=== PATIENT | female | born 1960 | race Caucasian/White ===

== ENCOUNTER 2018-07-10 21:32 | Inpatient (IN) | payer OTHER ==
[2018-07-10 23:13] LABS: ADD UMIC YES; UR ASCORBIC ACID 20 mg/dL (NEGATIVE); UR BACTERIA FEW /HPF (NONE SEEN); UR BILIRUBIN (Dip) NEGATIVE (NEGATIVE); UR BLOOD (Dip) NEGATIVE (NEGATIVE); UR CLARITY CLOUDY (CLEAR); UR COLOR YELLOW (YELLOW); UR GLUCOSE (Dip) NEGATIVE (NEGATIVE); UR KETONES (Dip) NEGATIVE (NEGATIVE); UR LEUKOCYTE ESTERASE (Dip) TRACE Leu/ul (NEGATIVE); UR MUCUS MODERATE /HPF (NONE SEEN); UR NITRITE (Dip) NEGATIVE (NEGATIVE); UR RBC 5 /HPF (0-5); UR SPECIFIC GRAVITY (Dip) 1.019 (1.003-1.030); UR SQUAMOUS EPITHELIAL CELL MANY /HPF (FEW); UR TOTAL PROTEIN (Dip) NEGATIVE (NEGATIVE); UR UROBILINOGEN (Dip) 1+ mg/dL (NEGATIVE); UR WBC 7 /HPF (0-5)
[2018-07-11] MEDS ORDERED: ACETAMINOPHEN 325 MG TAB PO (05:00)
[2018-07-11] MEDS ORDERED: MAGNESIUM HYDROXIDE 30ML CUP PO (05:00)
[2018-07-11] MEDS ORDERED: BISACODYL 10 MG SUPP PR (05:00)
[2018-07-11] MEDS ORDERED: LACTULOSE 30ML CUP PO (05:00)
[2018-07-11 07:18] LABS: ADD MAN DIFF? NO
[2018-07-11 07:20] LABS: WHITE BLOOD COUNT 7.4 10^3/ul (4.8-10.8)
[2018-07-11 07:20] LABS: BASOPHILS % 0.3 % (0.0-2.0); EOSINOPHILS % 13.3 % (0.0-7.0); HEMATOCRIT 43.4 % (37.0-47.0); HEMOGLOBIN 13.8 g/dl (12.0-16.0); LYMPHOCYTES # 1.4 10^3/ul (0.8-2.9); LYMPHOCYTES % 18.6 % (15.0-51.0); MEAN CORPUSCULAR HEMOGLOBIN 27.3 pg (29.0-33.0); MEAN CORPUSCULAR HGB CONC 31.8 g/dl (32.0-37.0); MEAN CORPUSCULAR VOLUME 85.8 fl (82.0-101.0); MEAN PLATELET VOLUME 11.7 fl (7.4-10.4); MONOCYTE # 0.5 10^3/ul (0.3-0.9); MONOCYTES % 7.3 % (0.0-11.0); NEUTROPHIL # 4.4 10^3/ul (1.6-7.5); NEUTROPHILS % 60.2 % (39.0-77.0); PLATELET COUNT 224 10^3/UL (140-415); RED BLOOD COUNT 5.06 10^6/ul (4.20-5.40); RED CELL DISTRIBUTION WIDTH 14.9 % (11.5-14.5)
[2018-07-11 07:44] LABS: INR 1.88; PROTIME 21.7 Sec (11.9-14.9); PT RATIO 1.7
[2018-07-11 07:47] LABS: ALANINE AMINOTRANSFERASE 50 IU/L (13-69); ALBUMIN 3.5 g/dl (3.3-4.9); ALBUMIN/GLOBULIN RATIO 1.29; ALKALINE PHOSPHATASE 86 IU/L (42-121); ANION GAP 6 (5-13); ASPARTATE AMINO TRANSFERASE 38 IU/L (15-46); BILIRUBIN,INDIRECT 0.4 mg/dl (0-1.1); BILIRUBIN,TOTAL 0.4 mg/dl (0.2-1.3); BLOOD UREA NITROGEN 19 mg/dl (7-20); CALCIUM 9.1 mg/dl (8.4-10.2); CARBON DIOXIDE 27 mmol/L (21-31); CHLORIDE 109 mmol/L (97-110); CREATININE 0.52 mg/dl (0.44-1.00); Estimated GFR > 60 mL/min (>60); GLUCOSE 92 mg/dl (70-220); POTASSIUM 3.8 mmol/L (3.5-5.1); SODIUM 142 mmol/L (135-144); TOTAL PROTEIN 6.2 g/dl (6.1-8.1)
[2018-07-11] MEDS: DOCUSATE SODIUM 100 MG CAP PO ×2 (10:09→21:18)
[2018-07-11] MEDS: ASPIRIN 81 MG TAB PO (10:09)
[2018-07-11] MEDS: LISINOPRIL 5 MG TAB PO (10:17)
[2018-07-11] MEDS: CIPROFLOXACIN 500 MG TAB PO ×3 (15:22→21:18)
[2018-07-11] MEDS: WARFARIN 2 MG TAB PO (18:34)
[2018-07-11] MEDS: SENNA TAB PO (21:18)
[2018-07-11] MEDS: ATORVASTATIN 40 MG TAB PO (21:18)
[2018-07-12] MEDS: CIPROFLOXACIN 500 MG TAB PO ×2 (06:25→18:36)
[2018-07-12 06:59] LABS: INR 2.16; PROTIME 24.2 Sec (11.9-14.9); PT RATIO 1.9
[2018-07-12] MEDS: LISINOPRIL 5 MG TAB PO (09:00)
[2018-07-12] MEDS: DOCUSATE SODIUM 100 MG CAP PO ×2 (10:51→21:07)
[2018-07-12] MEDS: ASPIRIN 81 MG TAB PO (10:51)
[2018-07-12] MEDS: WARFARIN 2 MG TAB PO (18:02)
[2018-07-12] MEDS: ATORVASTATIN 40 MG TAB PO (21:07)
[2018-07-12] MEDS: SENNA TAB PO (21:07)
[2018-07-13] MEDS: CIPROFLOXACIN 500 MG TAB PO ×2 (05:46→18:16)
[2018-07-13] MEDS: ASPIRIN 81 MG TAB PO (09:33)
[2018-07-13] MEDS: LISINOPRIL 5 MG TAB PO (09:34)
[2018-07-13] MEDS: DOCUSATE SODIUM 100 MG CAP PO ×2 (09:34→20:25)
[2018-07-13] MEDS: WARFARIN 2 MG TAB PO (18:20)
[2018-07-13] MEDS: SENNA TAB PO (20:25)
[2018-07-13] MEDS: ATORVASTATIN 40 MG TAB PO (20:25)
[2018-07-14] MEDS: CIPROFLOXACIN 500 MG TAB PO ×2 (05:49→17:04)
[2018-07-14 07:48] LABS: INR 2.05; PROTIME 23.2 Sec (11.9-14.9); PT RATIO 1.8
[2018-07-14] MEDS: DOCUSATE SODIUM 100 MG CAP PO ×2 (07:52→21:01)
[2018-07-14] MEDS: ASPIRIN 81 MG TAB PO (07:52)
[2018-07-14] MEDS: LISINOPRIL 5 MG TAB PO (08:47)
[2018-07-14] MEDS: WARFARIN 2 MG TAB PO (17:04)
[2018-07-14] MEDS: SENNA TAB PO (21:01)
[2018-07-14] MEDS: ATORVASTATIN 40 MG TAB PO (21:05)
[2018-07-15] MEDS: CIPROFLOXACIN 500 MG TAB PO ×2 (06:08→18:30)
[2018-07-15 07:53] LABS: INR 2.36; PROTIME 25.9 Sec (11.9-14.9)
[2018-07-15] MEDS: DOCUSATE SODIUM 100 MG CAP PO ×2 (09:23→21:00)
[2018-07-15] MEDS: ASPIRIN 81 MG TAB PO (09:23)
[2018-07-15] MEDS: LISINOPRIL 5 MG TAB PO (09:29)
[2018-07-15] MEDS: WARFARIN 2 MG TAB PO (18:29)
[2018-07-15] MEDS: SENNA TAB PO (21:00)
[2018-07-15] MEDS: ATORVASTATIN 40 MG TAB PO (21:00)
[2018-07-16] MEDS: CIPROFLOXACIN 500 MG TAB PO ×2 (06:15→18:22)
[2018-07-16 07:08] LABS: INR 2.07; PROTIME 23.4 Sec (11.9-14.9); PT RATIO 1.8
[2018-07-16] MEDS: LISINOPRIL 5 MG TAB PO (09:00)
[2018-07-16] MEDS: DOCUSATE SODIUM 100 MG CAP PO ×2 (10:17→20:49)
[2018-07-16] MEDS: ASPIRIN 81 MG TAB PO (10:21)
[2018-07-16] MEDS: WARFARIN 2 MG TAB PO (18:22)
[2018-07-16] MEDS: SENNA TAB PO (20:49)
[2018-07-16] MEDS: ATORVASTATIN 40 MG TAB PO (20:49)
[2018-07-17] MEDS: CIPROFLOXACIN 500 MG TAB PO ×2 (05:53→18:24)
[2018-07-17 07:27] LABS: ADD MAN DIFF? NO
[2018-07-17 07:42] LABS: BASOPHILS % 0.5 % (0.0-2.0); EOSINOPHILS # 0.3 10^3/ul (0.0-0.5); EOSINOPHILS % 4.3 % (0.0-7.0); HEMATOCRIT 38.7 % (37.0-47.0); HEMOGLOBIN 12.2 g/dl (12.0-16.0); LYMPHOCYTES # 0.9 10^3/ul (0.8-2.9); LYMPHOCYTES % 16.2 % (15.0-51.0); MEAN CORPUSCULAR HEMOGLOBIN 27.2 pg (29.0-33.0); MEAN CORPUSCULAR HGB CONC 31.5 g/dl (32.0-37.0); MEAN CORPUSCULAR VOLUME 86.4 fl (82.0-101.0); MEAN PLATELET VOLUME 12.4 fl (7.4-10.4); MONOCYTE # 0.6 10^3/ul (0.3-0.9); MONOCYTES % 10.2 % (0.0-11.0); NEUTROPHILS % 68.6 % (39.0-77.0); PLATELET COUNT 197 10^3/UL (140-415); RED BLOOD COUNT 4.48 10^6/ul (4.20-5.40); RED CELL DISTRIBUTION WIDTH 14.9 % (11.5-14.5)
[2018-07-17 07:42] LABS: WHITE BLOOD COUNT 5.8 10^3/ul (4.8-10.8)
[2018-07-17 07:56] LABS: ANION GAP 10 (5-13); BLOOD UREA NITROGEN 15 mg/dl (7-20); CALCIUM 9.4 mg/dl (8.4-10.2); CARBON DIOXIDE 29 mmol/L (21-31); CHLORIDE 104 mmol/L (97-110); CREATININE 0.54 mg/dl (0.44-1.00); Estimated GFR > 60 mL/min (>60); GLUCOSE 89 mg/dl (70-220); MAGNESIUM 1.9 mg/dl (1.7-2.5); PHOSPHORUS 3.8 mg/dl (2.5-4.9); POTASSIUM 4.4 mmol/L (3.5-5.1); SODIUM 143 mmol/L (135-144)
[2018-07-17 08:02] LABS: INR 1.86; PROTIME 21.5 Sec (11.9-14.9); PT RATIO 1.7
[2018-07-17] MEDS: LISINOPRIL 5 MG TAB PO (09:00)
[2018-07-17] MEDS: DOCUSATE SODIUM 100 MG CAP PO ×2 (10:05→20:37)
[2018-07-17] MEDS: ASPIRIN 81 MG TAB PO (10:06)
[2018-07-17] MEDS: ATORVASTATIN 40 MG TAB PO (20:31)
[2018-07-17] MEDS: WARFARIN 3 MG TAB PO (20:32)
[2018-07-17] MEDS: SENNA TAB PO (20:37)
[2018-07-18] MEDS: CIPROFLOXACIN 500 MG TAB PO (06:46)
[2018-07-18] MEDS: DOCUSATE SODIUM 100 MG CAP PO ×2 (09:00→20:47)
[2018-07-18 09:16] LABS: INR 1.65; PROTIME 19.6 Sec (11.9-14.9); PT RATIO 1.5
[2018-07-18] MEDS: ASPIRIN 81 MG TAB PO (10:15)
[2018-07-18] MEDS: LISINOPRIL 5 MG TAB PO (10:16)
[2018-07-18] MEDS: WARFARIN 3 MG TAB PO (17:40)
[2018-07-18] MEDS: ATORVASTATIN 40 MG TAB PO (20:47)
[2018-07-18] MEDS: SENNA TAB PO (20:47)
[2018-07-19 08:07] LABS: INR 1.95; PROTIME 22.3 Sec (11.9-14.9); PT RATIO 1.7
[2018-07-19] MEDS: LISINOPRIL 5 MG TAB PO (09:32)
[2018-07-19] MEDS: DOCUSATE SODIUM 100 MG CAP PO ×2 (09:32→21:00)
[2018-07-19] MEDS: ASPIRIN 81 MG TAB PO (09:32)
[2018-07-19] MEDS: WARFARIN 3 MG TAB PO (16:52)
[2018-07-19] MEDS: ATORVASTATIN 40 MG TAB PO (20:32)
[2018-07-19] MEDS: SENNA TAB PO (21:00)
[2018-07-20 08:11] LABS: PROTIME 22.8 Sec (11.9-14.9); PT RATIO 1.8
[2018-07-20] MEDS: DOCUSATE SODIUM 100 MG CAP PO ×2 (08:39→21:00)
[2018-07-20] MEDS: ASPIRIN 81 MG TAB PO (08:39)
[2018-07-20] MEDS: LISINOPRIL 5 MG TAB PO (08:39)
[2018-07-20] MEDS: WARFARIN 3 MG TAB PO (17:54)
[2018-07-20] MEDS: SENNA TAB PO (21:00)
[2018-07-20] MEDS: ATORVASTATIN 40 MG TAB PO (21:31)
[2018-07-21 08:26] LABS: INR 1.99; PROTIME 22.7 Sec (11.9-14.9); PT RATIO 1.8
[2018-07-21] MEDS: DOCUSATE SODIUM 100 MG CAP PO ×2 (10:56→21:00)
[2018-07-21] MEDS: ASPIRIN 81 MG TAB PO (10:56)
[2018-07-21] MEDS: LISINOPRIL 5 MG TAB PO (10:57)
[2018-07-21] MEDS: WARFARIN 3 MG TAB PO (18:09)
[2018-07-21] MEDS: ATORVASTATIN 40 MG TAB PO (20:32)
[2018-07-21] MEDS: SENNA TAB PO (21:00)
[2018-07-22] MEDS: DOCUSATE SODIUM 100 MG CAP PO ×2 (09:00→20:33)
[2018-07-22 09:59] LABS: PROTIME 21.9 Sec (11.9-14.9); PT RATIO 1.7
[2018-07-22] MEDS: LISINOPRIL 5 MG TAB PO (09:59)
[2018-07-22] MEDS: ASPIRIN 81 MG TAB PO (10:00)
[2018-07-22] MEDS: WARFARIN 3 MG TAB PO (17:45)
[2018-07-22] MEDS: ATORVASTATIN 40 MG TAB PO (20:30)
[2018-07-22] MEDS: SENNA TAB PO (20:33)
[2018-07-23 07:29] LABS: INR 1.98; PROTIME 22.6 Sec (11.9-14.9); PT RATIO 1.8
[2018-07-23] MEDS: ASPIRIN 81 MG TAB PO (08:19)
[2018-07-23] MEDS: LISINOPRIL 5 MG TAB PO (08:19)
[2018-07-23] MEDS: DOCUSATE SODIUM 100 MG CAP PO (08:19)
[2018-07-23] MEDS ORDERED: WARFARIN 3 MG TAB PO (17:00)
== END 2018-07-23 13:20 | disposition home health service (06) | DRG 56 ==
LOC: VRC 21:32
DX: I69.351 Hemiplegia and hemiparesis following cerebral infarction affecting right dominant side (principal); J96.00 Acute respiratory failure, unspecified whether with hypoxia or hypercapnia; J69.0 Pneumonitis due to inhalation of food and vomit; I50.23 Acute on chronic systolic (congestive) heart failure; N39.0 Urinary tract infection, site not specified; I69.391 Dysphagia following cerebral infarction; Z74.09 Other reduced mobility; R33.9 Retention of urine, unspecified; R73.03 Prediabetes; R13.12 Dysphagia, oropharyngeal phase; Z86.73 Personal history of transient ischemic attack (TIA), and cerebral infarction without residual deficits; R29.810 Facial weakness; I69.322 Dysarthria following cerebral infarction
CPT/HCPCS: 71045; 80048; 80053; 81001; 83735; 84100; 85025; 85610; 87081; 87086; 90686; 92507; 92523; 92526; 92610; 93306; 97110; 97112; 97116; 97150; 97163; 97530; 97535

== ENCOUNTER 2018-10-16 15:26 | Inpatient (IN) | payer OTHER ==
[2018-10-16] MEDS ORDERED: hydrALAzine 20 MG INJ IV (16:30)
[2018-10-16] MEDS ORDERED: ACETAMINOPHEN 325 MG TAB PO (16:30)
[2018-10-16] MEDS ORDERED: DOCUSATE SODIUM 100 MG CAP PO (16:30)
[2018-10-16] MEDS ORDERED: ALBUTEROL/IPRATROPIUM (NEB) 3 ML AMP HHN (16:30)
[2018-10-16] MEDS ORDERED: ONDANSETRON 4 MG INJ IV (16:30)
[2018-10-16] MEDS ORDERED: morphine 2 MG INJ IV (16:30)
[2018-10-16] MEDS ORDERED: LORAZEPAM 2 MG INJ IV (16:30)
[2018-10-16] MEDS ORDERED: NACL 0.9% 3 ML SYG IV (16:30)
[2018-10-16] MEDS ORDERED: MAGNESIUM HYDROXIDE 30ML CUP PO (16:30)
[2018-10-16] MEDS ORDERED: NITROGLYCERIN (SL) 0.4 MG TAB SL (16:30)
[2018-10-16] MEDS ORDERED: HYDROCODONE/APAP (5/325) TAB PO (16:30)
[2018-10-16] MEDS: WARFARIN 3 MG TAB PO (17:00)
[2018-10-16 17:24] LABS: INR 2.37
[2018-10-16 17:33] LABS: PARTIAL THROMBOPLASTIN TIME 35.2 Sec (23.0-35.0)
[2018-10-16 19:49] LABS: ANION GAP 8 (5-13); BLOOD UREA NITROGEN 19 mg/dl (7-20); CALCIUM 9.2 mg/dl (8.4-10.2); CARBON DIOXIDE 26 mmol/L (21-31); CHLORIDE 106 mmol/L (97-110); CREATININE 0.56 mg/dl (0.44-1.00); Estimated GFR > 60 mL/min (>60); GLUCOSE 107 mg/dl (70-220); POTASSIUM 3.8 mmol/L (3.5-5.1); SODIUM 140 mmol/L (135-144)
[2018-10-16] MEDS: ATORVASTATIN 40 MG TAB PO (20:04)
[2018-10-16] MEDS ORDERED: ATORVASTATIN 40 MG TAB PO (21:00)
[2018-10-16] MEDS: IOHEXOL 100 ML (21:24)
[2018-10-16] MEDS: SOD CHLORIDE 0.9% 100 ML (21:24)
[2018-10-17] MEDS: PANTOPRAZOLE (EC) 40 MG TAB PO (05:15)
[2018-10-17 05:42] LABS: ADD MAN DIFF? NO
[2018-10-17 05:49] LABS: BASOPHIL # 0.1 10^3/ul (0.0-0.1); BASOPHILS % 1.1 % (0.0-2.0); EOSINOPHILS # 0.4 10^3/ul (0.0-0.5); EOSINOPHILS % 8.9 % (0.0-7.0); HEMATOCRIT 37.8 % (37.0-47.0); HEMOGLOBIN 12.5 g/dl (12.0-16.0); LYMPHOCYTES # 1.2 10^3/ul (0.8-2.9); LYMPHOCYTES % 25.8 % (15.0-51.0); MEAN CORPUSCULAR HEMOGLOBIN 29.6 pg (29.0-33.0); MEAN CORPUSCULAR HGB CONC 33.1 g/dl (32.0-37.0); MEAN CORPUSCULAR VOLUME 89.4 fl (82.0-101.0); MEAN PLATELET VOLUME 11.9 fl (7.4-10.4); MONOCYTE # 0.5 10^3/ul (0.3-0.9); MONOCYTES % 11.8 % (0.0-11.0); NEUTROPHIL # 2.3 10^3/ul (1.6-7.5); NEUTROPHILS % 52.2 % (39.0-77.0); PLATELET COUNT 124 10^3/UL (140-415); RED BLOOD COUNT 4.23 10^6/ul (4.20-5.40); RED CELL DISTRIBUTION WIDTH 15.9 % (11.5-14.5)
[2018-10-17 05:49] LABS: WHITE BLOOD COUNT 4.5 10^3/ul (4.8-10.8)
[2018-10-17 06:21] LABS: ANION GAP 9 (5-13); BLOOD UREA NITROGEN 17 mg/dl (7-20); CALCIUM 9.5 mg/dl (8.4-10.2); CARBON DIOXIDE 28 mmol/L (21-31); CHLORIDE 106 mmol/L (97-110); CHOL/HDL RATIO 3.2 RATIO; CHOLESTEROL 94 mg/dl (100-200); CREATININE 0.59 mg/dl (0.44-1.00); Estimated GFR > 60 mL/min (>60); GLUCOSE 89 mg/dl (70-220); HDL CHOLESTEROL 29 mg/dl (37-92); LDL CHOLESTEROL,CALCULATED 51 mg/dl; MAGNESIUM 2.2 mg/dl (1.7-2.5); PHOSPHORUS 4.4 mg/dl (2.5-4.9); SODIUM 143 mmol/L (135-144); TRIGLYCERIDES 71 mg/dl (0-149)
[2018-10-17 07:31] LABS: HEMOGLOBIN A1C 5.3 % (0-5.9)
[2018-10-17] MEDS: LISINOPRIL 5 MG TAB PO (09:05)
[2018-10-17 09:42] LABS: INR 2.11; PROTIME 23.7 Sec (11.9-14.9); PT RATIO 1.9
[2018-10-17] MEDS: WARFARIN 3 MG TAB PO (17:00)
[2018-10-17] MEDS: ATORVASTATIN 40 MG TAB PO (20:58)
[2018-10-18] MEDS: PANTOPRAZOLE (EC) 40 MG TAB PO (05:25)
[2018-10-18 06:11] LABS: ADD MAN DIFF? NO
[2018-10-18 06:19] LABS: WHITE BLOOD COUNT 4.6 10^3/ul (4.8-10.8)
[2018-10-18 06:19] LABS: BASOPHILS % 0.9 % (0.0-2.0); EOSINOPHILS # 0.5 10^3/ul (0.0-0.5); EOSINOPHILS % 10.2 % (0.0-7.0); HEMATOCRIT 38.6 % (37.0-47.0); HEMOGLOBIN 12.5 g/dl (12.0-16.0); LYMPHOCYTES # 1.1 10^3/ul (0.8-2.9); LYMPHOCYTES % 23.2 % (15.0-51.0); MEAN CORPUSCULAR HEMOGLOBIN 29.2 pg (29.0-33.0); MEAN CORPUSCULAR HGB CONC 32.4 g/dl (32.0-37.0); MEAN CORPUSCULAR VOLUME 90.2 fl (82.0-101.0); MEAN PLATELET VOLUME 12.1 fl (7.4-10.4); MONOCYTE # 0.6 10^3/ul (0.3-0.9); MONOCYTES % 12.1 % (0.0-11.0); NEUTROPHIL # 2.5 10^3/ul (1.6-7.5); NEUTROPHILS % 53.6 % (39.0-77.0); PLATELET COUNT 129 10^3/UL (140-415); RED BLOOD COUNT 4.28 10^6/ul (4.20-5.40); RED CELL DISTRIBUTION WIDTH 15.8 % (11.5-14.5)
[2018-10-18 06:48] LABS: ANION GAP 7 (5-13); BLOOD UREA NITROGEN 25 mg/dl (7-20); CALCIUM 9.2 mg/dl (8.4-10.2); CARBON DIOXIDE 29 mmol/L (21-31); CHLORIDE 105 mmol/L (97-110); CREATININE 0.63 mg/dl (0.44-1.00); Estimated GFR > 60 mL/min (>60); GLUCOSE 90 mg/dl (70-220); SODIUM 141 mmol/L (135-144)
[2018-10-18 07:20] LABS: POTASSIUM 3.9 mmol/L (3.5-5.1)
[2018-10-18] MEDS: LISINOPRIL 5 MG TAB PO (08:32)
[2018-10-18 11:12] LABS: INR 2.07; PROTIME 23.4 Sec (11.9-14.9); PT RATIO 1.8
[2018-10-18] MEDS: WARFARIN 3 MG TAB PO (17:11)
[2018-10-18] MEDS: ATORVASTATIN 40 MG TAB PO (20:52)
[2018-10-19 05:19] LABS: ADD MAN DIFF? NO
[2018-10-19 05:27] LABS: BASOPHILS % 0.6 % (0.0-2.0); EOSINOPHILS # 0.5 10^3/ul (0.0-0.5); EOSINOPHILS % 11.6 % (0.0-7.0); HEMATOCRIT 37.4 % (37.0-47.0); HEMOGLOBIN 12.1 g/dl (12.0-16.0); LYMPHOCYTES # 1.1 10^3/ul (0.8-2.9); LYMPHOCYTES % 22.9 % (15.0-51.0); MEAN CORPUSCULAR HEMOGLOBIN 29.2 pg (29.0-33.0); MEAN CORPUSCULAR HGB CONC 32.4 g/dl (32.0-37.0); MEAN CORPUSCULAR VOLUME 90.1 fl (82.0-101.0); MEAN PLATELET VOLUME 11.8 fl (7.4-10.4); MONOCYTE # 0.5 10^3/ul (0.3-0.9); MONOCYTES % 11.1 % (0.0-11.0); NEUTROPHIL # 2.5 10^3/ul (1.6-7.5); NEUTROPHILS % 53.6 % (39.0-77.0); PLATELET COUNT 133 10^3/UL (140-415); RED BLOOD COUNT 4.15 10^6/ul (4.20-5.40); RED CELL DISTRIBUTION WIDTH 15.8 % (11.5-14.5)
[2018-10-19 05:27] LABS: WHITE BLOOD COUNT 4.7 10^3/ul (4.8-10.8)
[2018-10-19 05:41] LABS: POSITIVE DIFF @See below
[2018-10-19 05:59] LABS: ANION GAP 9 (5-13); BLOOD UREA NITROGEN 21 mg/dl (7-20); CALCIUM 9.3 mg/dl (8.4-10.2); CARBON DIOXIDE 29 mmol/L (21-31); CHLORIDE 105 mmol/L (97-110); Estimated GFR > 60 mL/min (>60); GLUCOSE 93 mg/dl (70-220); SODIUM 143 mmol/L (135-144)
[2018-10-19] MEDS: PANTOPRAZOLE (EC) 40 MG TAB PO (06:07)
[2018-10-19] MEDS: LISINOPRIL 5 MG TAB PO (08:17)
[2018-10-19 11:47] LABS: INR 1.81; PROTIME 21.1 Sec (11.9-14.9); PT RATIO 1.6
[2018-10-19] MEDS: WARFARIN 3 MG TAB PO (17:14)
[2018-10-19] MEDS: ATORVASTATIN 40 MG TAB PO (20:43)
[2018-10-20] MEDS: PANTOPRAZOLE (EC) 40 MG TAB PO (05:54)
[2018-10-20 06:05] LABS: ADD MAN DIFF? NO
[2018-10-20 06:11] LABS: BASOPHILS % 0.7 % (0.0-2.0); EOSINOPHILS # 0.5 10^3/ul (0.0-0.5); EOSINOPHILS % 11.9 % (0.0-7.0); HEMATOCRIT 36.5 % (37.0-47.0); HEMOGLOBIN 11.8 g/dl (12.0-16.0); LYMPHOCYTES # 0.9 10^3/ul (0.8-2.9); LYMPHOCYTES % 19.9 % (15.0-51.0); MEAN CORPUSCULAR HEMOGLOBIN 28.9 pg (29.0-33.0); MEAN CORPUSCULAR HGB CONC 32.3 g/dl (32.0-37.0); MEAN CORPUSCULAR VOLUME 89.2 fl (82.0-101.0); MEAN PLATELET VOLUME 12.2 fl (7.4-10.4); MONOCYTE # 0.5 10^3/ul (0.3-0.9); MONOCYTES % 10.1 % (0.0-11.0); NEUTROPHIL # 2.6 10^3/ul (1.6-7.5); NEUTROPHILS % 57.2 % (39.0-77.0); PLATELET COUNT 133 10^3/UL (140-415); RED BLOOD COUNT 4.09 10^6/ul (4.20-5.40); RED CELL DISTRIBUTION WIDTH 15.5 % (11.5-14.5)
[2018-10-20 06:11] LABS: WHITE BLOOD COUNT 4.5 10^3/ul (4.8-10.8)
[2018-10-20 06:25] LABS: ANION GAP 8 (5-13); BLOOD UREA NITROGEN 24 mg/dl (7-20); CALCIUM 9.1 mg/dl (8.4-10.2); CARBON DIOXIDE 27 mmol/L (21-31); CHLORIDE 107 mmol/L (97-110); CREATININE 0.56 mg/dl (0.44-1.00); Estimated GFR > 60 mL/min (>60); GLUCOSE 94 mg/dl (70-220); POTASSIUM 3.9 mmol/L (3.5-5.1); SODIUM 142 mmol/L (135-144)
[2018-10-20] MEDS: LISINOPRIL 5 MG TAB PO (09:02)
[2018-10-20 09:20] LABS: PT RATIO 1.6
[2018-10-20] MEDS: WARFARIN 3 MG TAB PO (16:43)
== END 2018-10-20 17:25 | disposition home health service (06) | DRG 65 ==
LOC: 6WM 15:26
PROVIDERS: Internal Medicine
DX: I63.9 Cerebral infarction, unspecified (principal); I50.22 Chronic systolic (congestive) heart failure; I42.9 Cardiomyopathy, unspecified; I69.951 Hemiplegia and hemiparesis following unspecified cerebrovascular disease affecting right dominant side; E66.9 Obesity, unspecified; Z68.25 Body mass index [BMI] 25.0-25.9, adult; I11.0 Hypertensive heart disease with heart failure; Z79.02 Long term (current) use of antithrombotics/antiplatelets; Z79.82 Long term (current) use of aspirin; E78.00 Pure hypercholesterolemia, unspecified; I69.992 Facial weakness following unspecified cerebrovascular disease
CPT/HCPCS: 71275; 80048; 80061; 83036; 83735; 84100; 84439; 84443; 85025; 85610; 85730; 92610; 97161; 97167